=== PATIENT | female | born 1975 | race American Indian/Alaskan Native ===

== ENCOUNTER 2019-05-21 00:36 | Emergency (ER) | payer MEDICARE ==
[2019-05-21] MEDS ORDERED: CLEOCIN 900 MG/50 mL 900 MG/50 ML BAG IV ONE (02:22)
[2019-05-21] MEDS ORDERED: TORADOL IV ONE (02:23)
[2019-05-21] MEDS ORDERED: BACTRIM DS PO ONE (02:23)
[2019-05-21 03:05] LABS: Basophils % (Auto) 0.3 % (0.0-1.8); Eosinophils # (Auto) 0.2 K/mm3 (0.0-0.4); Eosinophils % (Auto) 3.1 % (0.0-4.3); Hematocrit 41.8 % (30.3-42.9); Hemoglobin 13.7 gm/dl (10.1-14.3); Lymphocytes # (Auto) 1.3 K/mm3 (1.2-5.4); Lymphocytes % (Auto) 22.4 % (13.4-35.0); Mean Corpuscular HGB Conc 33 % (30-34); Mean Corpuscular Volume 93 fl (79-97); Monocytes # (Auto) 0.4 K/mm3 (0.0-0.8); Platelet Count 126 K/mm3 (140-440); Red Blood Count 4.49 M/mm3 (3.65-5.03); Red Cell Distribution Width 13.9 % (13.2-15.2)
[2019-05-21 03:29] LABS: Alanine Aminotransferase 17 units/L (7-56); Albumin 3.7 g/dL (3.9-5); BUN/Creatinine Ratio 17; Blood Urea Nitrogen 12 mg/dL (7-17); Calcium 8.7 mg/dL (8.4-10.2); Hemolysis Index 13
[2019-05-21 05:01] LABS: Bacteria,Urine 1+ /HPF (Negative); Bilirubin,Urine NEG (Negative); Blood,Urine NEG (Negative); Color,Urine Yellow (Yellow); Mucus,Urine 1+ /HPF; Protein,Urine <15 mg/dL mg/dL (Negative)
[2019-05-21 05:08] LABS: HCG Qualitative,Urine Negative (Negative)
--- NOTE | 2019-05-21 05:18 | Cat Scan Report ---
CT ABDOMEN AND PELVIS WITH CONTRAST INDICATION: Mid lower abdominal pain for one to 2 weeks, possible suprapubic abscess CONTRAST: 100 cc Omnipaque 300 IV COMPARISON: None available. All CT scans at this location are performed using CT dose reduction for ALARA by means of automated e xposure control. FINDINGS: Lung bases show only minimal atelectasis. No pneumoperitoneum is seen. Gallbladder has been removed. No urinary obstructive changes are seen. No masses are noted. No lymphadenopathy is seen. N o evidence of bowel obstruction is noted. Appendix appears within normal limits. Only a trace of free fluid is seen in the pelvis. IUD is noted in the body and lower fundal region transversely with the lower component of the T shaped IUD appearing to extend through the myometrium on the right to or dee dee rly to the serosal surface. No obvious acute changes are seen. No hemorrhage is noted. Left ovary jada ws a small partially collapsed cyst which probably is physiologic. In the suprapubic superficial subcutaneous tissues just to the left of midline a small area of ill-de fined stranding is noted measuring approximately 3 cm. No fluid collection is seen to suggest an absc ess. No gas is noted. No other inflammatory changes are seen. This process does not extend deeply in the subcutaneous tissues. In the right labia majora just below this level there is slight stranding i mmediately below the skin surface which is asymmetric but again no fluid collection is seen. IMPRESSION: 1. In the area of interest in the suprapubic region to the left of midline there is vague stranding s uggesting mild cellulitis no defined abscess is seen. Slight very superficial subcutaneous change in the upper right labia majora possibly could also represent superficial cellulitis but again no define d collection is not apparent. 2. Unusual position of the IUD which appears to well penetrated the myometrium to the outer surface o f the uterus though I do not see obvious acute change. Signer Name: Singh Restrepo MD Signed: 05/21/2019 5:14 AM Workstation Name: [id number]
--- NOTE | 2019-05-21 05:37 | Emergency Department Report ---
ED General Adult HPI - General Chief complaint: Skin/Abscess/Foreign Body Stated complaint: BOIL Source: patient Mode of arrival: Ambulatory Limitations: Language Barrier - History of Present Illness Initial comments: Patient is a 43-year-old -Kitt[place] female with no past medical history who presents to the ED with c/o acute onset persistent itchy erythematous maculopapular rash diffusely for the last 1 month. Patient also complains of severely painful swollen erythematous maculopapular nonfluctuant rash in the right axilla and lower abdominal wall as well as suprapubic area for the last 1 week. Patient denies fever, chills, nausea, vomiting, dizziness, headache, chest pain, shortness of breath, insect bite or cough and sore throat. Patient states that she just left a rehabilitation facility for drug and alcohol abuse and that she may have contracted the scratches from there. MD Complaint: itchy diffuse rashes; painful lower abdominal rash -: Sudden, month(s) (1) Location: abdomen (lower), pelvis, upper extremity (right axilla) Radiation: extremity (right axilla), abdomen (lower) Severity scale (0 -10): 7 Quality: burning, aching, sharp, constant Consistency: constant Improves with: none Worsens with: none Associated Symptoms: denies other symptoms, loss of appetite, malaise, rash (diffuse erythematous maculopapular nonfluctuant rash throughout). denies: confusion, chest pain, cough, fever/chills, nausea/vomiting, seizure, shortness of breath, syncope, weakness, other Treatments Prior to Arrival: none - Related Data Previous Rx's Medication Instructions Recorded Last Taken Type Ibuprofen [Motrin] 600 mg PO Q8H PRN #24 tablet 05/21/19 Unknown Rx Nystatin Oint [Mycostatin Oint] 1 applicatio TP Q12H #1 tube 05/21/19 Unknown Rx Ondansetron [Zofran Odt] 4 mg PO Q6H PRN #15 tab.rapdis 05/21/19 Unknown Rx Sulfamethoxazole/Trimethoprim 1 each PO Q12H #20 tablet 05/21/19 Unknown Rx [Bactrim DS TAB] Terbinafine HCl [LamiSIL] 250 mg PO DAILY #21 tablet 05/21/19 Unknown Rx diphenhydrAMINE [Benadryl CAP] 25 mg PO Q6HR PRN #30 capsule 05/21/19 Unknown Rx Allergies Allergy/AdvReac Type Severity Reaction Status Date / Time codeine Allergy Unknown Verified 05/21/19 00:47 Penicillins Allergy Unknown Verified 05/21/19 00:47 ED Review of Systems ROS: Stated complaint: BOIL Other details as noted in HPI Constitutional: denies: chills, fever Eyes: denies: eye pain, eye discharge, vision change ENT: denies: ear pain, throat pain Respiratory: denies: cough, shortness of breath, wheezing Cardiovascular: denies: chest pain, palpitations Endocrine: no symptoms reported Gastrointestinal: abdominal pain (lower abdominal wall due to erythematous maculopapular rash ). denies: nausea, vomiting, diarrhea, hematemesis, hematochezia Genitourinary: denies: urgency, dysuria, discharge Musculoskeletal: denies: back pain, joint swelling, arthralgia Skin: rash (diffuse erythematous maculopapular rash), change in color, pruritus. denies: lesions Neurological: denies: headache, weakness, paresthesias Psychiatric: denies: anxiety, depression Hematological/Lymphatic: denies: easy bleeding, easy bruising ED Past Medical Hx - Past Medical History Previous Medical History?: Yes Additional medical history: bronchitis - Surgical History Past Surgical History?: Yes Hx Cholecystectomy: Yes Additional Surgical History: x3 - Social History Smoking Status: Current Every Day Smoker Substance Use Type: None - Medications Home Medications: Home Medications Medication Instructions Recorded Confirmed Last Taken Type Ibuprofen [Motrin] 600 mg PO Q8H PRN #24 tablet 05/21/19 Unknown Rx Nystatin Oint [Mycostatin Oint] 1 applicatio TP Q12H #1 tube 05/21/19 Unknown Rx Ondansetron [Zofran Odt] 4 mg PO Q6H PRN #15 tab.rapdis 05/21/19 Unknown Rx Sulfamethoxazole/Trimethoprim 1 each PO Q12H #20 tablet 05/21/19 Unknown Rx [Bactrim DS TAB] Terbinafine HCl [LamiSIL] 250 mg PO DAILY #21 tablet 05/21/19 Unknown Rx diphenhydrAMINE [Benadryl CAP] 25 mg PO Q6HR PRN #30 capsule 05/21/19 Unknown R x ED Physical Exam - General Limitations: Language Barrier General appearance: alert, in no apparent distress - Head Head exam: Present: atraumatic, normocephalic, normal inspection - Eye Eye exam: Present: normal appearance, PERRL, EOMI Pupils: Present: normal accommodation - ENT ENT exam: Present: normal exam, normal orophraynx, mucous membranes moist, TM's normal bilaterally, normal external ear exam - Neck Neck exam: Present: normal inspection, full ROM - Respiratory Respiratory exam: Present: normal lung sounds bilaterally. Absent: respiratory distress, wheezes, rales, stridor, chest wall tenderness, decreased breath sounds, prolonged expiratory - Cardiovascular Cardiovascular Exam: Present: regular rate, normal rhythm, normal heart sounds. Absent: systolic murmur, diastolic murmur, rubs, gallop - GI/Abdominal GI/Abdominal exam: Present: soft, normal bowel sounds, other (probable tenderne ss over the lower abdominal wall due to erythematous maculopapular rash). Absent: tenderness, rebound, rigid, hyperactive bowel sounds, mass, bruit - Extremities Exam Extremities exam: Present: normal inspection, full ROM, normal capillary refill - Back Exam Back exam: Present: normal inspection, full ROM. Absent: tenderness, CVA tenderness (R), CVA tenderness (L), muscle spasm, paraspinal tenderness - Neurological Exam Neurological exam: Present: alert, oriented X3, CN II-XII intact, normal gait - Psychiatric Psychiatric exam: Present: normal affect, normal mood - Skin Skin exam: Present: warm, dry, intact, normal color, rash (diffuse erythematous maculopapular rashes, worse in the lower abdominal wall with tenderness) ED Course Vital Signs 05/21/19 05/21/19 05/21/19 00:47 03:29 03:59 Temperature 98.3 F Pulse Rate 74 Respiratory 16 16 16 Rate Blood Pressure 104/76 O2 Sat by Pulse 95 Oximetry - Reevaluation(s) Reevaluation #1: 05/21/19 05:45 This is a 43-year-old female who presented to the ED with diffuse erythematous maculopapular itchy rashes for about a month. In the ED, patient is alert and oriented 3 and is not in distress. Lab test results are nonactionable. Patient was treated for pain in the ED, also given initial oral antibiotics and IV antibiotics in the ED as well as with Benadryl. On reevaluation, patient's pain is well controlled with medications, patient slept most of the time during the ED visit. Abdomen pelvis CT scan with contrast showed in the area of interest in the suprapubic region to the left of midline a vague stranding suggesting mild cellulitis no defined abscess is seen. Slight very superficial subcutaneous change in the upper right labia majora possibly could also represent superficial cellulitis but again no defined collection is not apparent. Patient was discharged home on medications including antibiotics and pain medications and advised to follow-up with her primary care physician at [facility] in 7-10 days for reevaluation. Patient was also advised to return to the ED immediately if symptoms get worse. ED Medical Decision Making - Lab Data Result diagrams: 05/21/19 02:40 05/21/19 02:40 - Radiology Data Radiology results: report reviewed, image [place] [address] Cat Scan Report Signed Patient: ELIJAH SANTIAGO MR#: [id number] : 1975 Acct:[id number] Age/Sex: 43 / F ADM Date: 05/21/19 Loc: ED Attending Dr: Ordering Physician: ABA BEAR Date of Service: 05/21/19 Procedure(s): CT abdomen pelvis w con Accession Number(s): [id number] cc: ABA BEAR CT ABDOMEN AND PELVIS WITH CONTRAST INDICATION: Mid lower abdominal pain for one to 2 weeks, possible suprapubic abscess CONTRAST: 100 cc Omnipaque 300 IV COMPARISON: None available. All CT scans at this location are performed using CT dose reduction for ALARA by means of automated exposure control. FINDINGS: Lung bases show only minimal atelectasis. No pneumoperitoneum is seen. Gallbladder has been removed. No urinary obstructive changes are seen. No masses are noted. No lymphadenopathy is seen. No evidence of bowel obstruction is noted. Appendix appears within normal limits. Only a trace of free fluid is seen in the pelvis. IUD is noted in the body and lower fundal region transversely with the lower component of the T shaped IUD appearing to extend through the myometrium on the right to or nearly to the serosal surface. No obvious acute changes are seen. No hemorrhage is noted. Left ovary shows a small partially collapsed cyst which probably is physiologic. In the suprapubic superficial subcutaneous tissues just to the left of midline a small area of ill- defined stranding is noted measuring approximately 3 cm. No fluid collection is seen to suggest an abscess. No gas is noted. No other inflammatory changes are seen. This process does not extend deeply in the subcutaneous tissues. In the right labia majora just below this level there is slight stranding immediately below the skin surface which is asymmetric but again no fluid collection is seen. IMPRESSION: 1. In the area of interest in the suprapubic region to the left of midline there is vague stranding suggesting mild cellulitis no defined abscess is seen. Slight very superficial subcutaneous change in the upper right labia majora possibly could also represent superficial cellulitis but again no defined collection is not apparent. 2. Unusual position of the IUD which appears to well penetrated the myometrium to the outer surface of the uterus though I do not see obvious acute change. Signer Name: Singh Restrepo MD Signed: 05/21/2019 5:14 AM Workstation Name: [id number] Transcribed By: ANIA Dictated By: Singh Restrepo MD Electronically Authenticated By: Singh Restrepo MD Signed Date/Time: 05/21/19 0514 - Medical Decision Making This is a 43-year-old female who presented to the ED with diffuse erythematous maculopapular itchy rashes for about a month. In the ED, patient is alert and oriented 3 and is not in distress. Lab test results are nonactionable. Aba perez was treated for pain in the ED, also given initial oral antibiotics and IV antibiotics in the ED as well as with Benadryl. On reevaluation, patient's pain is well controlled with medications, patient slept most of the time during the ED visit. Abdomen pelvis CT scan with contrast showed in the area of interest in the suprapubic region to the left of midline a vague stranding suggesting mil d cellulitis no defined abscess is seen. Slight very superficial subcutaneous change in the upper right labia majora possibly could also represent superficial cellulitis but again no defined collection is not apparent. Patient was discharged home on medications including antibiotics and pain medications and advised to follow-up with her primary care physician at [facility] in 7-10 days for reevaluation. Patient was also advised to return to the ED immediately if symptoms get worse. - Differential Diagnosis Cellulitis; Folliculitis; Tinea corporis; Itching, Allergic reaction Critical care attestation.: If time is entered above; I have spent that time in minutes in the direct care of this critically ill patient, excluding procedure time. ED Disposition Clinical Impression: Cellulitis of abdominal wall, Tinea corporis, Itching with irritation Disposition: TO HOME OR SELFCARE Is pt being admited?: No Does the pt Need Aspirin: No Condition: Stable Instructions: Itchy Skin (ED), Cellulitis (ED), Tinea Corporis (ED) Additional Instructions: Take medications with food, drink plenty of fluids and follow-up with your [facility] physician in 7-10 days for reevaluation. Return to the ED immediately if symptoms get worse. Prescriptions: Sulfamethoxazole/Trimethoprim [Bactrim DS TAB] 1 each PO Q12H #20 tablet diphenhydrAMINE [Benadryl CAP] 25 mg PO Q6HR PRN #30 capsule PRN Reason: Itching Terbinafine HCl [LamiSIL] 250 mg PO DAILY #21 tablet Ibuprofen [Motrin] 600 mg PO Q8H PRN #24 tablet PRN Reason: Pain Nystatin Oint [Mycostatin Oint] 1 applicatio TP Q12H #1 tube Ondansetron [Zofran Odt] 4 mg PO Q6H PRN #15 tab.rapdis PRN Reason: Nausea Referrals: [facility] [Outside] - 3-5 Days Time of Disposition: 05:34 Print Language: KOREAN
[2019-05-21 06:15] VITALS: BP 108/68
== END 2019-05-21 06:14 | disposition home or self-care (01) ==
LOC: ED 00:36
DX: L03.311 Cellulitis of abdominal wall (principal); B35.4 Tinea corporis; F17.200 Nicotine dependence, unspecified, uncomplicated; Z90.49 Acquired absence of other specified parts of digestive tract; Z98.890 Other specified postprocedural states; Z88.6 Allergy status to analgesic agent; Z88.0 Allergy status to penicillin
CPT/HCPCS: 36415; 74177; 80053; 81001; 81025; 85025; 87040; 96365; 96375; 99284; J1885; Q9967